=== PATIENT | male | born 1980 | race African-American/Black ===

== ENCOUNTER 2017-10-13 07:03 | Outpatient (CLI) | payer OTHER ==
[2017-10-13 07:32] LABS: Anion Gap 17 mmol/L (10-20); BUN (Urea Nitrogen) 14 mg/dL (8.9-20.6); Calc. Creatinine Clearance 0 mL/min (70-130); Calcium 9.5 mg/dL (7.8-10.44); Carbon Dioxide 22 mmol/L (22-29); Chloride 105 mmol/L (98-107); Estimated GFR-MDRD 86; Glucose 126 mg/dL (70-105); Potassium 4.1 mmol/L (3.5-5.1); Sodium 140 mmol/L (136-145)
== END 2017-10-13 07:04 | disposition home or self-care (01) ==
LOC: MADLAB 07:03
PROVIDERS: ATTEND Family Medicine
DX: I10 Essential (primary) hypertension (principal)
CPT/HCPCS: 36415; 80048

== ENCOUNTER 2017-11-18 16:10 | Emergency (ER) | payer OTHER ==
[2017-11-18] MEDS ORDERED: HYDROcodone/Acetaminophen 5/325 mg Tablet ONE (16:31)
== END 2017-11-18 16:35 | disposition home or self-care (01) ==
LOC: MADERS 16:10
DX: S29.012A Strain of muscle and tendon of back wall of thorax, initial encounter (principal); I10 Essential (primary) hypertension; X58.XXXA Exposure to other specified factors, initial encounter
CPT/HCPCS: 99283

== ENCOUNTER 2019-02-08 17:29 | Emergency (ER) | payer OTHER | END 2019-02-08 18:03 | disposition home or self-care (01) | LOC: MADERS 17:29 | DX: J06.9 Acute upper respiratory infection, unspecified (principal); I10 Essential (primary) hypertension; Z79.899 Other long term (current) drug therapy | CPT/HCPCS: 99281 ==

== ENCOUNTER 2020-03-15 19:55 | Emergency (ER) | payer OTHER, SELFPAY ==
[2020-03-15] MEDS ORDERED: Ibuprofen 800 MG TAB ONE (20:23)
[2020-03-15] MEDS ORDERED: Cyclobenzaprine 10 MG TAB ONE (20:23)
== END 2020-03-15 20:40 | disposition home or self-care (01) ==
LOC: MADERS 19:55
DX: M75.101 Unspecified rotator cuff tear or rupture of right shoulder, not specified as traumatic (principal); I10 Essential (primary) hypertension; Z79.899 Other long term (current) drug therapy
CPT/HCPCS: 99283